=== PATIENT | female | born 2000 | race Two or more races ===

== ENCOUNTER 2023-11-29 16:16 | Outpatient (OUT) | payer OTHER, SELFPAY ==
--- NOTE | 2023-11-29 16:57 | US_ITS ---
The [address] [address] Patient Name: ANA CERVANTES MRN: [id number] date: 2000 Sex: F Assigned Patient Location: LAB Current Patient Location: Accession/Order Number: [id number] Exam Date: 11/29/2023 17:20 Report Date: 11/30/2023 07:09 At the request of: KEVON LI Procedure: US pelvis w/ transvaginal EXAM: Pelvic ultrasound HISTORY: . polycystic ovarian syndrome E28.2 . COMPARISON: None. TECHNIQUE: Transabdominal and transvaginal scanning was performed FINDINGS: Thinning of the pelvis demonstrates an antegrade vertebral uterus measuring 5.1 x 1.6 x 2.6 cm. Endometrial complex measures 10 mm. Right ovary measures 1.4 x 1.2 x 0.8 cm. Color-flow is noted. No masses are noted. Left ovary measures 1.5 x 0.9 x 1.4 cm. Color-flow is noted. No masses are noted. Small nabothian cysts were noted. There was a thin hypoechoic stripe within the endocervical canal. US/US pelvis w/ transvaginal IMPRESSION: 1. Normal-appearing uterus and endometrial complex. 2. Normal-appearing ovaries with color flow. 3. Small nabothian cysts within the cervix. There was a thin hypoechoic stripe within the endocervical canal which could represent a small amount of fluid and/or blood. Electronically authenticated by: GUZMAN PEREIRA Date: 11/30/2023 07:09
[2023-11-29 17:01] LABS: Basophils Absolute Auto 0.1 10^3/uL (0.0-0.1); Basophils Percent Auto 0.7 % (0.2-2.0); Eosinophils Absolute Auto 0.4 10^3/uL (0.0-0.7); Eosinophils Percent Auto 4.8 % (0.9-7.0); Hematocrit 38.7 % (36.0-48.0); Hemoglobin 12.8 g/dL (12.0-16.0); Immature Granulocytes Abs Auto 0.03 10^3/uL (0.00-0.03); Immature Granulocytes Pct Auto 0.4 % (0.0-0.5); Lymphocytes Absolute Auto 3.2 10^3/uL (1.2-3.8); Mean Corpuscular HGB Conc 33.1 g/dL (29.9-35.2); Mean Corpuscular Hemoglobin 27.9 pg (26.7-34.0); Mean Corpuscular Volume 84.5 fL (81.0-99.0); Mean Platelet Volume 8.6 fL (9.5-13.5); Monocytes Absolute Auto 0.6 10^3/uL (0.3-0.8); Monocytes Percent Auto 7.7 % (1.7-12.0); Neutrophils Absolute Auto 3.9 10^3/uL (1.4-6.5); Neutrophils Percent Auto 47.4 % (43.0-75.0); Platelet Count 366 10^3/uL (150-450); Red Blood Count 4.58 10^6/uL (4.20-5.40); Red Cell Distribution Width 12.3 % (11.0-15.0); White Blood Count 8.3 10^3/uL (4.0-11.0)
[2023-11-29 17:29] LABS: Estimated Average Glucose 108 mg/dL; Glycohemoglobin A1C 5.4 % (4.5-6.2)
[2023-11-29 17:34] LABS: Free T4 0.91 ng/dL (0.76-1.46)
[2023-11-29 17:37] LABS: HCG Quantitative <1 mIU/mL; Thyroid Stimulating Hormone 1.935 uIU/mL (0.358-3.740)
[2023-12-01 04:07] LABS: FSH 82.4 mIU/mL (.); Luteinizing Hormone(LH) 34.4 mIU/mL (.); Prolactin 19.3 ng/mL (4.8-33.4)
[2023-12-03 14:11] LABS: Anti-Mullerian Hormone (AMH) <0.015 ng/mL (.)
[2023-12-06 07:08] LABS: DHEA, Serum 144 ng/dL (31-701)
== END 2023-11-29 16:17 | disposition home or self-care (01) ==
LOC: LAB 16:20
PROVIDERS: PCP Internal Medicine; Visit Provider Obstetrics & Gynecology
DX: E28.2 Polycystic ovarian syndrome (principal); N88.8 Other specified noninflammatory disorders of cervix uteri
CPT/HCPCS: 36415; 76830; 76856; 82397; 82626; 82627; 83001; 83002; 83036; 84146; 84439; 84443; 84702; 85025